=== PATIENT | female | born 1950 | race Caucasian/White ===

== ENCOUNTER → 2020-03-31 | Outpatient (CLI) | payer OTHER ==
[~2020-03-31] MED LIST: OMNIPAQUE 350 MG/ML, 75ML BOTTLE ONE
[2020-03-31 14:20] LABS: CREATININE 0.75 mg/dL (0.55-1.02)
== END | disposition home or self-care (01) ==
LOC: RAD 13:41
PROVIDERS: ATTEND Emergency Medicine
DX: U07.1 COVID-19 (principal); R06.02 Shortness of breath; R91.1 Solitary pulmonary nodule; J18.9 Pneumonia, unspecified organism; R91.8 Other nonspecific abnormal finding of lung field
CPT/HCPCS: 36415; 71260; 82565; Q9967